=== PATIENT | female | born 1990 | race African-American/Black ===

== ENCOUNTER 2018-08-09 00:34 | Emergency (ER) | payer MEDICAID, SELFPAY ==
[2018-08-09] MEDS ORDERED: diphenhydrAMINE 50 MG/ML VIAL ONE (00:49)
[2018-08-09] MEDS ORDERED: methylPREDNISolone Sod Succ/PF 125 MG/2 ML VIAL ONE (00:50)
[2018-08-09] MEDS ORDERED: Famotidine/PF 20 mg/2ml Vial ONE (00:50)
== END 2018-08-09 03:29 | disposition home or self-care (01) ==
LOC: ERS 00:34
DX: T78.40XA Allergy, unspecified, initial encounter (principal); J45.909 Unspecified asthma, uncomplicated; F17.210 Nicotine dependence, cigarettes, uncomplicated
CPT/HCPCS: 96361; 96374; 96375; J1200; J2930; S0028

== ENCOUNTER 2021-02-06 23:09 | Emergency (ER) | payer OTHER ==
[2021-02-07] MEDS ORDERED: Ketorolac Tromethamine 30 MG/ML VIAL ONE (00:18)
== END 2021-02-07 00:44 | disposition home or self-care (01) ==
LOC: ERS 23:09
DX: M53.3 Sacrococcygeal disorders, not elsewhere classified (principal); M54.5 Low back pain
CPT/HCPCS: 96372; 99283; J1885

== ENCOUNTER 2021-10-20 22:18 | Emergency (ER) | payer SELFPAY | END 2021-10-20 23:19 | disposition left against medical advice (07) | LOC: ERS 22:18 | DX: Z53.21 Procedure and treatment not carried out due to patient leaving prior to being seen by health care provider (principal) ==

== ENCOUNTER 2022-07-19 17:52 | Emergency (ER) | payer OTHER, SELFPAY | END 2022-07-19 21:04 | disposition home or self-care (01) | LOC: ERS 17:52 | DX: L30.9 Dermatitis, unspecified (principal); F17.210 Nicotine dependence, cigarettes, uncomplicated | CPT/HCPCS: 99282 ==

== ENCOUNTER 2022-07-31 16:37 | Emergency (ER) | payer OTHER, SELFPAY ==
[2022-07-31 18:26] LABS: Bilirubin Negative (Negative); Blood, Urine Negative (Negative); Clarity Clear (Clear); Glucose, Urine (Dipstick) Normal (Negative); Ketone, Urine Negative (Negative); Leukocyte Negative Leu/uL (Negative); Nitrite Negative (Negative); Protein, Urine (Dipstick) Negative (Neg-Trace); Specific Gravity, Urine 1.025 (1.002-1.036); Urobilinogen Normal mg/dL (Less than 2); pH, Urine 5.5 (5.0-9.0)
[2022-07-31 19:17] LABS: Pregnancy Test - Urine (BHCG) Negative (Negative); Pregu Control Background? CLEAR/WHITE (CLR/WHITE); Pregu Control Bar Appear? YES (CONTROL BAR); Specific Gravity 1.023 (1.002-1.036)
[2022-07-31] MEDS ORDERED: Cyclobenzaprine 10 MG TAB ONE (19:19)
[2022-07-31] MEDS ORDERED: Ketorolac Tromethamine 30 MG/ML VIAL ONE (19:19)
== END 2022-07-31 19:41 | disposition home or self-care (01) ==
LOC: ERS 16:37
DX: M54.41 Lumbago with sciatica, right side (principal); F17.210 Nicotine dependence, cigarettes, uncomplicated
CPT/HCPCS: 81003; 81025; 87086; 96372; 99283; J1885

== ENCOUNTER 2023-01-04 00:09 | Inpatient (IN) | payer SELFPAY ==
[2023-01-04] MEDS ORDERED: Ketorolac Tromethamine 30 MG/ML VIAL ONE (00:58)
[2023-01-04] MEDS ORDERED: HYDROmorphone 0.5 MG/0.5 ML SYRINGE ONE (00:58)
[2023-01-04] MEDS ORDERED: Ondansetron PF 4 MG/2 ML Vial ONE (00:58)
[2023-01-04] MEDS ORDERED: Magnesium 2 GM/50 ML(in water) 2 GM in Premix Bag 1 BAG IVPB SCH (01:15)
[2023-01-04 01:31] VITALS: BMI 10.0
[2023-01-04] MEDS ORDERED: Magnesium 2 GM/50 ML BAG (IN WATER) ONE (01:34)
[2023-01-04 04:19] LABS: Mean Corpuscular HGB CONC 34.8 g/dL (32.0-36.0); Mean Corpuscular Hemoglobin 33.8 pg (27.0-31.0); Mean Corpuscular Volume 97.1 fl (78.0-98.0); Mean Platelet Volume 9.1 fL (7.4-10.4); Platelet Count 213 10x3/uL (130-400); RBC Distribution Width 12.4 % (11.5-14.5); Red Blood Cell (RBC) Count 4.14 mill/uL (4.20-5.40); White Blood Cell (WBC) Count 11.2 10x3/uL (4.8-10.8)
[2023-01-04 04:38] LABS: Lactic Acid 1.7 mmol/L (0.5-2.2)
[2023-01-04 04:45] LABS: ALT (SGPT) 15 U/L (8-55); AST (SGOT) 24 U/L (5-34); Albumin 3.2 g/dL (3.5-5.0); Alkaline Phosphatase 46 U/L (40-110); Anion Gap 13 mmol/L (10-20); BUN (Urea Nitrogen) 8 mg/dL (7.0-18.7); Bilirubin, Total 0.8 mg/dL (0.2-1.2); Calc. Creatinine Clearance 51 mL/min (70-130); Calcium 7.6 mg/dL (7.8-10.44); Carbon Dioxide 18 mmol/L (22-29); Chloride 110 mmol/L (98-107); Estimated GFR 104; Globulin 2.3 g/dL (2.4-3.5); Glucose 106 mg/dL (70-105); Potassium 3.7 mmol/L (3.5-5.1); Protein, Total 5.5 g/dL (6.0-8.3); Sodium 137 mmol/L (136-145)
[2023-01-04 05:01] LABS: Delete Auto Diff?? YES; HIV (1/2) Antibody/Antigen Non-Reactive (NonReactive); HIV 1/2 INDEX 0.08 S/CO (<1.00); Manual Diff?? YES
[2023-01-04 06:06] LABS: Anisocytosis SLIGHT = 6-15 cells HPF (0-5); Band 29 % (5-11); Burr Cells SLIGHT = 2-5 cells HPF (0-1); CellaVision Operator ID LAB.JMM; Large Platelets 0.9 % (0-5); Lymphocytes 11 % (21-51); Metamyelocyte 6 % (0-0); Monocytes 2 % (0-10); Neutrophil 51 % (42-75); Platelet Adequacy Comment Platelets Normal; Polychromasia SLIGHT = 2-3 cells HPF (0-2); Smudge Cells 2.8 %; Total Cell Count 109
[2023-01-04] MEDS: Acetaminophen 325 MG TAB PO PRN ×2 (11:58→22:38)
[2023-01-04] MEDS ORDERED: Ketorolac Tromethamine 30 MG/ML VIAL IVP PRN (12:20)
[2023-01-04] MEDS ORDERED: Benzonatate 100 MG CAP PO PRN (12:23)
[2023-01-04 13:04] LABS: Bacteria/HPF None Seen HPF (None Seen); Bilirubin Negative (Negative); Blood, Urine Negative (Negative); CAUTI Indications for Culture Pelvic or flank pain; Clarity Clear (Clear); Glucose, Urine (Dipstick) Normal (Negative); Ketone, Urine Trace mg/dL (Negative); Leukocyte Negative Leu/uL (Negative); Nitrite Negative (Negative); Protein, Urine (Dipstick) 20 mg/dL (Neg-Trace); RBC/HPF None Seen HPF (0-3); Squamous Epithelial 0-3 HPF (0-3); Urobilinogen 3 mg/dL (Less than 2); WBC/HPF 0-3 HPF (0-3); pH, Urine 5.5 (5.0-9.0)
[2023-01-04 13:09] LABS: Urine Culture Reflex No No
[2023-01-04 13:10] LABS: Amphetamine Detected (NotDetected); Barbiturates Screen Not Detected (NotDetected); Benzodiazepine Screen Not Detected (NotDetected); Cocaine Metabolite Screen Not Detected (NotDetected); Methadone Not Detected (NotDetected); Methamphetamine Detected (NotDetected); Opiate Screen Detected (NotDetected); Oxycodone Screen Not Detected (NotDetected); Phencyclidine (PCP) Not Detected (NotDetected); THC/Cannabinoid Screen Not Detected (NotDetected); Tricyclic Screen Not Detected (NotDetected)
[2023-01-04 13:47] LABS: Legionella Urinary Ag Negative (Negative); Strep pneumo Urine Ag NEGATIVE (NEGATIVE)
[2023-01-04] MEDS ORDERED: Vancomycin 1 GM in Premix Bag 1 BAG IVPB SCH (14:00)
[2023-01-04] MEDS: Cefepime 2 GM in Sodium Chloride 0.9% 100 ML IVPB SCH (21:10)
[2023-01-05] MEDS: Vancomycin 1 GM in Premix Bag 1 BAG IVPB SCH ×2 (03:00→14:17)
[2023-01-05 06:18] LABS: Mean Corpuscular HGB CONC 34.9 g/dL (32.0-36.0); Mean Corpuscular Hemoglobin 34.2 pg (27.0-31.0); Mean Platelet Volume 9.6 fL (7.4-10.4); Platelet Count 203 10x3/uL (130-400); RBC Distribution Width 12.2 % (11.5-14.5); Red Blood Cell (RBC) Count 3.51 mill/uL (4.20-5.40); White Blood Cell (WBC) Count 11.6 10x3/uL (4.8-10.8)
[2023-01-05 06:32] LABS: Delete Auto Diff?? YES; Manual Diff?? YES
[2023-01-05 06:48] LABS: ALT (SGPT) 16 U/L (8-55); AST (SGOT) 21 U/L (5-34); Alkaline Phosphatase 49 U/L (40-110); Anion Gap 10 mmol/L (10-20); BUN (Urea Nitrogen) 11 mg/dL (7.0-18.7); Bilirubin, Total 0.3 mg/dL (0.2-1.2); Calc. Creatinine Clearance 126 mL/min (70-130); Calcium 8.7 mg/dL (7.8-10.44); Carbon Dioxide 22 mmol/L (22-29); Chloride 108 mmol/L (98-107); Estimated GFR 108; Globulin 2.5 g/dL (2.4-3.5); Glucose 87 mg/dL (70-105); Potassium 3.7 mmol/L (3.5-5.1); Protein, Total 5.5 g/dL (6.0-8.3); Sodium 136 mmol/L (136-145)
[2023-01-05 07:15] LABS: Band 17 % (5-11); Burr Cells SLIGHT = 2-5 cells HPF (0-1); CellaVision Operator ID LAB.GE; Eosinophils 1 % (0-10); Large Platelets 3.9 % (0-5); Lymphocytes 6 % (21-51); Metamyelocyte 1 % (0-0); Monocytes 1 % (0-10); Neutrophil 73 % (42-75); Platelet Adequacy Comment Platelets Normal; Polychromasia SLIGHT = 2-3 cells HPF (0-2); Reactive Lymphocytes 1 % (0-10); Total Cell Count 103
[2023-01-05] MEDS: Cefepime 2 GM in Sodium Chloride 0.9% 100 ML IVPB SCH ×2 (08:36→20:57)
[2023-01-05] MEDS ORDERED: Iopamidol-370 76% 500 ML MDV (1 ML CHARGE) ONE (09:29)
[2023-01-05 10:20] LABS: Pregnancy Test - Urine (BHCG) Negative (Negative); Pregu Control Background? CLEAR/WHITE (CLR/WHITE); Pregu Control Bar Appear? YES (CONTROL BAR)
[2023-01-06 01:19] LABS: Vancomycin, Trough 9.3 ug/mL
[2023-01-06] MEDS: Vancomycin 1 GM in Premix Bag 1 BAG IVPB SCH (02:11)
[2023-01-06 07:06] LABS: Hemoglobin 12.9 g/dL (12.0-16.0); Mean Corpuscular HGB CONC 34.6 g/dL (32.0-36.0); Mean Corpuscular Hemoglobin 33.6 pg (27.0-31.0); Mean Corpuscular Volume 97.1 fl (78.0-98.0); Mean Platelet Volume 9.9 fL (7.4-10.4); Platelet Count 258 10x3/uL (130-400); RBC Distribution Width 12.1 % (11.5-14.5); Red Blood Cell (RBC) Count 3.84 mill/uL (4.20-5.40); White Blood Cell (WBC) Count 9.1 10x3/uL (4.8-10.8)
[2023-01-06 07:32] LABS: ALT (SGPT) 22 U/L (8-55); AST (SGOT) 22 U/L (5-34); Albumin 3.2 g/dL (3.5-5.0); Alkaline Phosphatase 66 U/L (40-110); Anion Gap 11 mmol/L (10-20); BUN (Urea Nitrogen) 11 mg/dL (7.0-18.7); Bilirubin, Total 0.2 mg/dL (0.2-1.2); Calc. Creatinine Clearance 121 mL/min (70-130); Calcium 9.2 mg/dL (7.8-10.44); Carbon Dioxide 22 mmol/L (22-29); Chloride 107 mmol/L (98-107); Delete Auto Diff?? YES; Estimated GFR 103; Globulin 2.9 g/dL (2.4-3.5); Glucose 92 mg/dL (70-105); Manual Diff?? YES; Potassium 3.3 mmol/L (3.5-5.1); Protein, Total 6.1 g/dL (6.0-8.3); Sodium 137 mmol/L (136-145)
[2023-01-06] MEDS: Cefepime 2 GM in Sodium Chloride 0.9% 100 ML IVPB SCH (08:24)
[2023-01-06 08:27] LABS: Anisocytosis SLIGHT = 6-15 cells HPF (0-5); Band 7 % (5-11); Burr Cells SLIGHT = 2-5 cells HPF (0-1); CellaVision Operator ID LAB.NR; Eosinophils 1 % (0-10); Lymphocytes 15 % (21-51); Neutrophil 78 % (42-75); Platelet Adequacy Comment Platelets Normal; Smudge Cells 8.7 %; Total Cell Count 103
[2023-01-06] MEDS ORDERED: Vancomycin 1 GM in Premix Bag 1 BAG IVPB SCH (10:00)
[2023-01-06] MEDS: cefTRIAXone\\ROCEPHIN 2 GM in Sodium Chloride 0.9% 100 ML IVPB SCH (13:12)
[2023-01-06] MEDS: Acetaminophen 325 MG TAB PO PRN (19:44)
[2023-01-07 05:20] LABS: #Eosinphils 0.3 thou/uL (0.0-0.7); #Monocytes 0.5 thou/uL (0.11-0.59); #Neutrophils 7.2 thou/uL (1.40-6.50); %Basophils 0.4 % (0.0-1.0); %Eosinophils 2.9 % (0.0-10.0); %Monocytes 5.4 % (0.0-10.0); %Neutrophils 74.9 % (42.0-75.0); Hemoglobin 12.2 g/dL (12.0-16.0); Mean Corpuscular Hemoglobin 34.4 pg (27.0-31.0); Mean Corpuscular Volume 95.5 fl (78.0-98.0); Mean Platelet Volume 9.5 fL (7.4-10.4); Platelet Count 279 10x3/uL (130-400); RBC Distribution Width 11.8 % (11.5-14.5); Red Blood Cell (RBC) Count 3.55 mill/uL (4.20-5.40); White Blood Cell (WBC) Count 9.6 10x3/uL (4.8-10.8)
[2023-01-07 05:37] LABS: Manual Diff?? YES
[2023-01-07 05:48] LABS: ALT (SGPT) 24 U/L (8-55); AST (SGOT) 21 U/L (5-34); Albumin 3.1 g/dL (3.5-5.0); Alkaline Phosphatase 58 U/L (40-110); Anion Gap 13 mmol/L (10-20); BUN (Urea Nitrogen) 15 mg/dL (7.0-18.7); Bilirubin, Total 0.2 mg/dL (0.2-1.2); Calc. Creatinine Clearance 128 mL/min (70-130); Calcium 8.7 mg/dL (7.8-10.44); Carbon Dioxide 22 mmol/L (22-29); Chloride 107 mmol/L (98-107); Estimated GFR 109; Globulin 2.7 g/dL (2.4-3.5); Glucose 99 mg/dL (70-105); Potassium 3.4 mmol/L (3.5-5.1); Protein, Total 5.8 g/dL (6.0-8.3); Sodium 139 mmol/L (136-145)
[2023-01-07 06:05] LABS: Band 4 % (5-11); Eosinophils 1 % (0-10); Lymphocytes 10 % (21-51); Monocytes 4 % (0-10); Neutrophil 81 % (42-75); Platelet Adequacy Comment Platelets Normal; Total Cell Count 100
[2023-01-07] MEDS ORDERED: Polyethylene Glycol 3350 17 GM Packet PO SCH (09:00)
[2023-01-07] MEDS: cefTRIAXone\\ROCEPHIN 2 GM in Sodium Chloride 0.9% 100 ML IVPB SCH (11:12)
[2023-01-07] MEDS ORDERED: diphenhydrAMINE 25 MG CAP PO SCH (20:30)
[2023-01-08 07:10] LABS: #Eosinphils 0.3 thou/uL (0.0-0.7); #Neutrophils 5.9 thou/uL (1.40-6.50); %Basophils 0.4 % (0.0-1.0); %Lymphocytes 17.9 % (21.0-51.0); %Monocytes 11.6 % (0.0-10.0); %Neutrophils 66.4 % (42.0-75.0); Mean Corpuscular HGB CONC 34.8 g/dL (32.0-36.0); Mean Corpuscular Hemoglobin 33.1 pg (27.0-31.0); Mean Corpuscular Volume 95.3 fl (78.0-98.0); Mean Platelet Volume 9.3 fL (7.4-10.4); Platelet Count 303 10x3/uL (130-400); RBC Distribution Width 11.8 % (11.5-14.5); Red Blood Cell (RBC) Count 3.62 mill/uL (4.20-5.40); White Blood Cell (WBC) Count 8.9 10x3/uL (4.8-10.8)
[2023-01-08 07:35] LABS: ALT (SGPT) 27 U/L (8-55); AST (SGOT) 19 U/L (5-34); Albumin 3.1 g/dL (3.5-5.0); Alkaline Phosphatase 53 U/L (40-110); Anion Gap 12 mmol/L (10-20); BUN (Urea Nitrogen) 9 mg/dL (7.0-18.7); Bilirubin, Total 0.2 mg/dL (0.2-1.2); Calc. Creatinine Clearance 123 mL/min (70-130); Calcium 8.9 mg/dL (7.8-10.44); Carbon Dioxide 25 mmol/L (22-29); Chloride 104 mmol/L (98-107); Estimated GFR 104; Globulin 2.9 g/dL (2.4-3.5); Glucose 100 mg/dL (70-105); Potassium 3.4 mmol/L (3.5-5.1); Sodium 138 mmol/L (136-145)
[2023-01-08] MEDS ORDERED: Potassium Chloride 20 MEQ TAB PO SCH (08:00)
[2023-01-08] MEDS ORDERED: Metamucil PACK PO SCH (09:00)
[2023-01-08] MEDS ORDERED: PNEUMOC 20-VAL CONJ-DIP CRM/PF 0.5 ML SYRINGE IM ONE (12:00)
[2023-01-08 12:45] VITALS: BP 117/73; TEMP 98.5
[2023-01-08] MEDS: cefTRIAXone\\ROCEPHIN 2 GM in Sodium Chloride 0.9% 100 ML IVPB SCH (12:50)
== END 2023-01-08 17:01 | disposition home or self-care (01) | DRG 871 ==
LOC: ERS 00:09 → ERHOLD 01:11 → T4-B 11:44
PROVIDERS: ADMIT Student in an Organized Health Care Education/Training Program; ATTEND Student in an Organized Health Care Education/Training Program
DX: A40.3 Sepsis due to Streptococcus pneumoniae (principal); A41.51 Sepsis due to Escherichia coli [E. coli]; G93.41 Metabolic encephalopathy; R65.21 Severe sepsis with septic shock; J18.9 Pneumonia, unspecified organism; N39.0 Urinary tract infection, site not specified; J45.909 Unspecified asthma, uncomplicated; F19.90 Other psychoactive substance use, unspecified, uncomplicated; D25.9 Leiomyoma of uterus, unspecified; F17.210 Nicotine dependence, cigarettes, uncomplicated; R13.10 Dysphagia, unspecified; R91.1 Solitary pulmonary nodule; K59.00 Constipation, unspecified; Z88.0 Allergy status to penicillin
CPT/HCPCS: 36415; 36416; 71046; 74177; 80053; 80202; 80306; 81001; 81025; 83605; 84145; 85025; 87040; 87081; 87086; 87389; 87449; 87899; 90471; 93005; 96374; 96375; 90677; G0009; J0692; J0696; J1170; J1650; J1885; J2405; J3370-JW; J3372; J3475; J3490; Q9967